=== PATIENT | male | born 1975 | race Caucasian/White ===

== ENCOUNTER 2025-01-11 06:21 | Day surgery (SDC) | payer BC ==
[2025-01-04 13:53] VITALS: BMI 32.7
[2025-01-11] MEDS ORDERED: PROPOFOL 60 ML ONE (07:07)
[2025-01-11] MEDS ORDERED: MIDAZOLAM HCL 2 MG/2 ML SINGLE DOSE VIAL ONE (07:07)
[2025-01-11] MEDS ORDERED: BUPIVACAINE HCL/EPINEPHRINE/PF 30 ML VIAL IJ ONE (07:19)
[2025-01-11] MEDS ORDERED: KETAMINE HCL 100 MG/ML - 5ML VIAL ONE (07:20)
[2025-01-11] MEDS ORDERED: DEXAMETHASONE SOD PHOSPHATE 4 MG/1 ML VIAL ONE (08:00)
[2025-01-11] MEDS ORDERED: ceFAZolin SODIUM 1 GM VIAL ONE (08:00)
[2025-01-11] MEDS ORDERED: ONDANSETRON 4 MG/2 ML VIAL ONE (08:00)
[2025-01-11] MEDS ORDERED: KETOROLAC TROMETHAMINE 30 MG/1 ML VIAL ONE (08:09)
[2025-01-11] MEDS: BUPIVACAINE 0.25% /EPI 1:200,000 10 ML VIAL NR ONE (08:32)
[2025-01-11] MEDS ORDERED: PROMETHAZINE HCL 25 MG/1 ML VIAL IVPB PRN (08:37)
[2025-01-11] MEDS ORDERED: ONDANSETRON 4 MG/2 ML VIAL IVPUSH PRN (08:37)
[2025-01-11] MEDS ORDERED: ACETAMINOPHEN INJECTION 100 ML ONE (08:44)
[2025-01-11] MEDS ORDERED: LACTATED RINGERS SOLUTION 1,000 ML IV SCH (08:45)
[2025-01-11] MEDS: ACETAMINOPHEN 1000 MG/100 ML BAG IVPB ONE (08:51)
[2025-01-11 10:14] VITALS: RESP 18
[2025-01-11 10:22] VITALS: TEMP 97.4
[2025-01-11 12:22] VITALS: BP 128/80; PULSE 60
== END 2025-01-11 12:22 | disposition home or self-care (01) ==
LOC: FASU 06:21
PROVIDERS: ATTEND Orthopaedic Surgery
PROC: 0SBC4ZZ Excision of Right Knee Joint, Percutaneous Endoscopic Approach (ICD-10-PCS; principal; 2025-01-11 08:07)
DX: S83.241A Other tear of medial meniscus, current injury, right knee, initial encounter (principal); X58.XXXA Exposure to other specified factors, initial encounter; Y92.9 Unspecified place or not applicable; Y93.9 Activity, unspecified
CPT/HCPCS: 94760; J0131